=== PATIENT | female | born 1965 | race African-American/Black ===

== ENCOUNTER → 2017-01-02 | Outpatient (CLI) | payer BC ==
--- NOTE | ~2017-01-02 | MY11 ---
[facility] A Service [facility] RADIOLOGY TEXT RESULTS PATIENT: ALTAGRACIA SANTOS LOCATION: [facility] : 67 UNIT #: [id number] AGE: [address]: Tyrell Alarcon MD SEX: F ORDER DR: [id number] [place] [id number] MR#: [id number] Acc #: [id number] NAME: ALTAGRACIA SANTOS : 1965 SEX: F STUDY DATE/TIME: 01/02/2017 11:30 UNIT: [facility] ROOM: STUDY DESCRIPTION: MY Mammogram Screening Dig Mike Attending Physician: Tyrell Alarcon M.D. Referring Physician: Tyrell Alarcon M.D. Ordering Physician: Tyrell Alarcon M.D. Primary Care Physician: Tyrell Alarcon M.D. MEDICAL IMAGING REPORT This report is preliminary unless electronic signature is present. EXAM Digital screening mammogram with CAD INDICATION Routine screening PROCEDURE Bilateral CC and MLO views obtained on a digital mammography unit. FDA-approved CAD device was utilized. COMPARISON 12/03/2015 FINDINGS Scattered fibroglandular density. No dominant mass or suspicious calcification. IMPRESSION Negative screening mammogram. Screen interval in 1 year suggested. Patients over the age of 40 are entered into a reminder system with target due date for the next mammogram. A result letter will also be sent to the patient. BIRADS: 1 Negative Dictated by... Eliseo Jones M.D. THIS IS AN ELECTRONICALLY VERIFIED REPORT Eliseo Jones M.D. at 01/03/2017 7:08 AM [email or web address] [facility] A Service [facility] RADIOLOGY TEXT RESULTS PATIENT: ALTAGRACIA SANTOS LOCATION: [facility] : 67 UNIT #: [id number] AGE: [address]: Tyrell Alarcon MD SEX: F ORDER DR: TD: 01/02/2017 12:02 JOB #: [id number] MEDICAL IMAGING REPORT
== END | disposition home or self-care (01) ==
LOC: SMAM 10:42
DX: Z12.31 Encounter for screening mammogram for malignant neoplasm of breast (principal)
CPT/HCPCS: G0202